=== PATIENT | female | born 1970 | race Caucasian/White ===

== ENCOUNTER → 2023-09-09 15:12 | Outpatient (BNVA) | payer OTHER, SELFPAY | PROVIDERS: Visit Provider Internal Medicine | DX: M79.642 Pain in left hand (principal); L40.50 Arthropathic psoriasis, unspecified; M47.812 Spondylosis without myelopathy or radiculopathy, cervical region | CPT/HCPCS: 36415; 72040; 73120; 80053; 85025; 86140; 86200; 86431; 86480; 86704; 86803; 87340 ==